=== PATIENT | male | born 1935 | race Caucasian/White ===

== ENCOUNTER 2018-01-31 10:30 | Inpatient (IN) | payer MEDICARE ==
[~2018-01-31] VITALS: Ht 188 cm; Wt 79.0 kg
[2018-01-31] VITALS (24 sets, daily range): BP systolic 122–221; BP diastolic 51–113; PULSE 55–114; RESP 16–30; TEMP 98.2–98.4; O2SAT 96–100
--- NOTE | 2018-01-31 10:43 | PD ---
HPI Chief Complaint: Altered Mental Status Time Seen by Provider: 10:33 Travel History International Travel<30 days: No Contact w/Intl Traveler<30days: No History of Present Illness HPI Patient is an approximately 82 year old male presents from home as trauma alert. He was found down in the bathroom this morning. Unknown last seen normal time. Patient is GCS of 8 on arrival (V-2, M-5, E-1). Patient unable to provide history. Trauma alert was called in the field suspecting a ground level fall. Patient's arrives sometime after the patient states that the patient apparently called out from the bathroom this morning saying he was okay earlier in the morning. She states that he usually gets out of bed about 4:30 in the morning and she does not usually get up to 8:00 so she did not suspect anything was wrong. Finally when she found him on the bathroom he was curled up in his head was resting against a cabinet. She is unsure if he fell or lowered himself to the ground or had a syncopal episode. He is not on any blood thinners, does have a history of a AAA repair once years ago and then a revision in March of last year by Dr. Lloyd. [facility] Past Medical History Narrative Medical Other than in [facility] unable to obtain Medical History: Unable to Obtain Past Surgical History Narrative Surgical Other than in [facility] unable to obtain Surgical History: Unable to Obtain Social History Narrative Social History Other than in [facility] unable to obtain Alcohol Use: No Tobacco Use: No Substance Use: No Allergies-Medications (Allergen,Severity, Reaction): Coded Allergies: Penicillins (Verified Allergy, Severe, 01/31/18) Reported Meds & Prescriptions Reported Meds & Active Scripts Active Reported Levothyroxine (Levothyroxine Sodium) 125 Mcg Tab 125 Mcg PO DAILY Lisinopril 2.5 Mg Tab 2.5 Mg PO DAILY Rosuvastatin (Rosuvastatin Calcium) 40 Mg Tab 40 Mg PO DAILY Metformin (Metformin HCl) 500 Mg Tab 500 Mg PO TID Review of Systems ROS Limitations: Altered Mental Status Physical Exam Narrative GENERAL: Well-developed well-nourished no obvious distress SKIN: Focused skin assessment warm/dry. HEAD: Atraumatic. Normocephalic. No ham signs no raccoons eyes EYES: Pupils equal and round. No scleral icterus. No injection or drainage. There is disconjugate gaze. ENT: No nasal bleeding or discharge. Mucous membranes pink and moist. TMs clear bilaterally NECK: Trachea midline. No JVD. CARDIOVASCULAR: Regular rate and rhythm. No murmur appreciated. RESPIRATORY: No accessory muscle use. Clear to auscultation. Breath sounds equal bilaterally. GASTROINTESTINAL: Abdomen soft, non-tender, nondistended. Hepatic and splenic margins not palpable. MUSCULOSKELETAL: No obvious deformities. No clubbing. No cyanosis. No edema. NEUROLOGICAL: Awake, stuporous, GCS of 8 as above. Moves all 4 extremities, he is yawning, intermittent myoclonic jerks. He will localize with bilateral upper extremities per Data Data Last Documented VS Vital Signs Date Time Temp Pulse Resp B/P (MAP) Pulse Ox O2 Delivery O2 Flow Rate FiO2 01/31/18 11:30 80 16 208/94 (132) 100 Ventilator 100 01/31/18 11:11 3.00 Orders Orders I-Stat Profile (01/31/18 10:35) Complete Blood Count With Diff (01/31/18 10:35) Prothrombin Time / Inr (Pt) (01/31/18 10:35) Act Partial Throm Time (Ptt) (01/31/18 10:35) Type And Screen (01/31/18 10:35) Fibrinogen (01/31/18 10:35) Alcohol (Ethanol) (01/31/18 10:35) Urinalysis - C+S If Indicated (01/31/18 10:35) Drug Screen, Random Urine (01/31/18 10:35) Chest, Single Ap (01/31/18 10:35) Pelvis, Ap Only (Routine) (01/31/18 10:35) Ct Brain W/O Iv Contrast(Rout) (01/31/18 10:35) Ct Cerv Spine W/O Contrast (01/31/18 10:35) Iv Access Insert/Monitor (01/31/18 10:35) Ecg Monitoring (01/31/18 10:35) Oximetry (01/31/18 10:35) Oxygen Administration (01/31/18 10:35) Basic Metabolic Panel (Bmp) (01/31/18 10:35) Troponin I (01/31/18 10:35) Ckmb (Isoenzyme) Profile (01/31/18 10:35) Rocuronium Inj (Zemuron Inj) (01/31/18 10:51) Etomidate Inj (Amidate Inj) (01/31/18 10:52) Propofol 500 Mg/50 Ml Inj (Diprivan 500 (01/31/18 11:20) Protein Corrected Calcium(Pcc) (01/31/18 10:33) Cta Brain W Iv Contrast W 3d (01/31/18 ) Admit Order (Ed Use Only) (01/31/18 ) Propofol 1000 Mg/100 Ml Inj (Diprivan 10 (01/31/18 11:30) Restraints Non-Violent SHAYY.Q3H (01/31/18 11:25) Etomidate Inj (Amidate Inj) (01/31/18 11:30) Rocuronium Inj (Zemuron Inj) (01/31/18 11:30) Insert Ng Tube (01/31/18 11:25) Chest, Single Ap (01/31/18 ) Elevate Head Of Bed (01/31/18 11:25) Labs Laboratory Tests Test 01/31/18 10:33 01/31/18 11:07 White Blood Count 10.2 TH/MM3 Red Blood Count 4.55 MIL/MM3 Hemoglobin 14.0 GM/DL Bedside Hemoglobin 11.9 G/DL Hematocrit 41.6 % Bedside Hematocrit 35.0 % Mean Corpuscular Volume 91.5 FL Mean Corpuscular Hemoglobin 30.7 PG Mean Corpuscular Hemoglobin Concent 33.6 % Red Cell Distribution Width 15.6 % Platelet Count 147 TH/MM3 Mean Platelet Volume 8.6 FL Neutrophils (%) (Auto) 91.7 % Lymphocytes (%) (Auto) 4.9 % Monocytes (%) (Auto) 3.1 % Eosinophils (%) (Auto) 0.0 % Basophils (%) (Auto) 0.3 % Neutrophils # (Auto) 9.3 TH/MM3 Lymphocytes # (Auto) 0.5 TH/MM3 Monocytes # (Auto) 0.3 TH/MM3 Eosinophils # (Auto) 0.0 TH/MM3 Basophils # (Auto) 0.0 TH/MM3 CBC Comment DIFF FINAL Differential Comment Prothrombin Time 10.7 SEC Prothromb Time International Ratio 1.1 RATIO Activated Partial Thromboplast Time 22.4 SEC Fibrinogen 306 mg/dL Bedside Sodium 142 MMOL/L Blood Urea Nitrogen 28 MG/DL Creatinine 0.94 MG/DL Random Glucose 147 MG/DL Total Protein 6.1 GM/DL Calcium Level 7.3 MG/DL Sodium Level 144 MEQ/L Potassium Level 3.5 MEQ/L Chloride Level 113 MEQ/L Carbon Dioxide Level 23.8 MEQ/L Bedside Potassium 3.5 MMOL/L Bedside Chloride 108 MMOL/L Anion Gap 7 MEQ/L Bedside Blood Urea Nitrogen 26 MG/DL Bedside Creatinine 0.8 MG/DL Estimat Glomerular Filtration Rate 69 ML/MIN Bedside Glucose 149 MG/DL Protein Corrected Calcium 7.8 MG/DL Total Creatine Kinase 68 U/L Troponin I 0.03 NG/ML Ethyl Alcohol Level LESS THAN 3 MG/DL Urine Color LIGHT-YELLOW Urine Turbidity CLEAR Urine pH 6.0 Urine Specific [place] 1.017 Urine Protein 30 mg/dL Urine Glucose (UA) NEG mg/dL Urine Ketones NEG mg/dL Urine Occult Blood TRACE Urine Nitrite NEG Urine Bilirubin NEG Urine Urobilinogen LESS THAN 2.0 MG/DL Urine Leukocyte Esterase NEG Urine RBC 3 /hpf Urine WBC 1 /hpf Urine Bacteria RARE /hpf Urine Mucus FEW /lpf Microscopic Urinalysis Comment CATH-CULTURE IND Urine Opiates Screen NEG Urine Barbiturates Screen NEG Urine Amphetamines Screen NEG Urine Benzodiazepines Screen NEG Urine Cocaine Screen NEG Urine Cannabinoids Screen NEG MDM Medical Screen Exam Complete: Yes Emergency Medical Condition: Yes EKG Prior to Arrival: Yes Differential Diagnosis Intracranial hemorrhage, multiple trauma unlikely, ruptured AAA considered but unlikely, cerebral aneurysm, hemorrhagic stroke, ischemic stroke, electrolyte normality, DKA. Narrative Course Patient room to the emergency department, I have a previous encounter number for him which is [id number]. This encounter for him being here in March having revision of his AAA. Patient did have prolonged transportation from our about 30 minutes prior to arrival, he is saturating well on nasal cannula. He is taken to CAT scan which did show significant hemorrhage in bilateral hemispheres which what appears to be extension in the brainstem. Last 24 hours Impressions Pelvis X-Ray 01/31/18 1035 Signed Impressions: Service Date/Time: Wednesday, January 31, 2018 10:33 - CONCLUSION: Suboptimal exam demonstrating no evidence of acute fracture or malalignment. Portions of the left hip were cut off the exam. Julio Ponce MD Head CT 01/31/18 1035 Signed Impressions: Service Date/Time: Wednesday, January 31, 2018 10:40 - CONCLUSION: 1. Large amount of bilateral subarachnoid hemorrhage with confluent high density hemorrhage along the base the brain and suprasellar regions of concern for aneurysm rupture. 2. Intraventricular hemorrhage with dilatation of the lateral ventricles and third ventricle. 3. Questionable intraparenchymal hemorrhage in the temporal lobes which may be secondary to large amount of subarachnoid hemorrhage. Julio Ponce MD Chest X-Ray 01/31/185 Signed Impressions: Service Date/Time: Wednesday, January 31, 2018 10:33 - CONCLUSION: 1. Suboptimal exam demonstrating no acute cardiac pulmonary disease. Portions of the left lateral chest wall and costophrenic angle cut off the exam. Julio Ponce MD Cervical Spine CT 01/31/18 1035 Signed Impressions: Service Date/Time: Wednesday, January 31, 2018 10:40 - CONCLUSION: Negative trauma CT. Julio Ponce MD Patient was ultimately seen by Dr. Flores and we both examined the patient and do not believe his hemorrhage to be from trauma, Dr. Phoenix was summoned at 1102 is at the bedside 1108 for neuro exam prior to intubation, afterwards he agrees the patient to be intubated for airway protection, was intubated easily with a glide scope. Became hypertensive after intubation with rock and etomidate, a dose of labetalol was ordered by Dr. Phoenix, Cardene drip was ordered by me. His head of bed was kept elevated to 30, he did receive a liter of normal saline. Multiple considerations were given to a CT of his aorta but after careful consideration I do not think this is contributing to his current medical situation, after discussion with the radiologist it would be safer for him at this point I believe to do a CTA of his head only by Dr. Phoenix recommendation. Ultimately discussed with Dr. Jose for admission to the intensive surgical unit for what appears to be isolated intracranial hemorrhage. I suspect nontraumatic however traumatic has not been completely excluded. I did discuss with the patient's prior to intubation, per the patient's living will which is not readily accessible to me at this time the patient would want to proceed with aggressive measurement if there is a chance of meaningful recovery. I discussed with her that this is a life-threatening injury but cannot say that it is 100% at this point. She elects to proceed with intubation. He will be a full code at this time. Critical Care Narrative Aggregate critical care time was 65 minutes. Time to perform other separately billable procedures was not included in the critical care time. My time did not include minutes spent treating any other patients simultaneously or on activities that did not directly contribute to the patient's treatment. The services I provided to this patient were to treat and/or prevent clinically significant deterioration that could result in: , disability, organ failure I provided critical care services requiring my management, as noted below: Chart data review, documentation time, medication orders and management, vital sign assessments/reviewing monitor data, ordering and reviewing lab tests, ordering and interpreting/reviewing x-rays and diagnostic studies, care of the patient and discussion of the patient with the admitting physicians. Procedures Procedure Narrative After the risks and benefits were discussed with the the following procedure was performed: INTUBATION: The patient was put in optimal position for the procedure. Rapid sequence intubation was initiated by me using 20 milligrams of etomidate IV and 50 milligrams of rocuronium IV. The patient was intubated with a 8-0 cuffed endotracheal tube. Tube placement was confirmed by visualization of the tube and balloon passing through the cords, capnometry and subsequent chest x-ray. Breath sounds were equal and well aerated bilaterally postintubation. No breath sounds over stomach. Patient tolerated procedure well. Trauma Alert - Level One Trauma Alert Level One: Full trauma team activate, Patient evaluated Diagnosis Diagnosis: Primary Impression: Subarachnoid hemorrhage Additional Impressions: Encephalopathy acute Hypertensive emergency without congestive heart failure Admitting Physician Requests: Admit Condition: Critical Brandon Elder MD Jan 31, 2018 10:43
--- NOTE | 2018-01-31 10:47 | RADRPT ---
EXAM DATE/TIME: 01/31/2018 10:33 [facility] COMPARISON: No previous studies available for comparison. INDICATIONS : Trauma alert. Found unconscious On floor. MEDICAL HISTORY : None. SURGICAL HISTORY : None. ENCOUNTER: Initial ACUITY: 1 day PAIN SCORE: Non-responsive. LOCATION: Bilateral chest FINDINGS: A single AP supine view of the chest was obtained. There is overlying artifact from a backboard. Port ions of the left lateral chest wall and costophrenic angle cut off the exam. There are no confluent i nfiltrates or effusions. The heart size appears mildly prominent with no perihilar edema. Mild athero sclerotic changes are present in the aorta. Bony thorax is intact with scoliosis and degenerative tatum nge. CONCLUSION: 1. Suboptimal exam demonstrating no acute cardiac pulmonary disease. Portions of the left lateral ch est wall and costophrenic angle cut off the exam. Julio Ponce MD on January 31, 2018 at 10:43 Board Certified Radiologist. This report was verified electronically.
--- NOTE | 2018-01-31 10:48 | RADRPT ---
EXAM DATE/TIME: 01/31/2018 10:33 [facility] COMPARISON: No previous studies available for comparison. INDICATIONS : Trauma alert. Found unconcious on floor. MEDICAL HISTORY : None. SURGICAL HISTORY : None. ENCOUNTER: Initial ACUITY: 1 day PAIN SCORE: Non-responsive. LOCATION: Bilateral pelvis FINDINGS: A single AP view of the pelvis was obtained. There is overlying artifact from a backboard. Portions o f the left hip were cut of the exam and are not evaluated. There is mild osteopenia with no evidence of fracture or malalignment. There are mild degenerative changes in the hips. The sacrum appears inta ct. Portions of an aortic stent graft is noted. CONCLUSION: Suboptimal exam demonstrating no evidence of acute fracture or malalignment. Portions of the left hip were cut off the exam. Julio Ponce MD on January 31, 2018 at 10:44 Board Certified Radiologist. This report was verified electronically.
[2018-01-31] MEDS ORDERED: ROCURONIUM INJ 50 MG/5 ML VIAL ONE (10:51)
[2018-01-31] MEDS ORDERED: ETOMIDATE 40 MG/20 ML VIAL ONE (10:52)
[2018-01-31 10:55] LABS: AUTOMATED NEUTROPHIL # 9.3 TH/MM3 (1.8-7.7); BASOPHIL % 0.3 % (0.0-2.0); HEMATOCRIT 41.6 % (39.0-51.0); LYMPH % 4.9 % (9.0-44.0); LYMPHOCYTE # 0.5 TH/MM3 (1.0-4.8); MEAN CELL VOLUME 91.5 FL (80.0-100.0); MEAN CORPUSCULAR HEMOGLOBIN 30.7 PG (27.0-34.0); MEAN CORPUSCULAR HGB CONC 33.6 % (32.0-36.0); MEAN PLATELET VOLUME 8.6 FL (7.0-11.0); MONO % 3.1 % (0.0-8.0); MONOCYTE # 0.3 TH/MM3 (0-0.9); NEUT % 91.7 % (16.0-70.0); PLATELET COUNT 147 TH/MM3 (150-450); RED BLOOD COUNT 4.55 MIL/MM3 (4.50-5.90); RED CELL DISTRIBUTION WIDTH 15.6 % (11.6-17.2); WHITE BLOOD COUNT 10.2 TH/MM3 (4.0-11.0)
--- NOTE | 2018-01-31 11:01 | RADRPT ---
EXAM DATE/TIME: 01/31/2018 10:40 [facility] COMPARISON: CT CERVICAL SPINE W/O CONTRAST, January 31, 2018, 10:40. INDICATIONS : Trauma alert, possible fall today. RADIATION DOSE: 64.63 CTDIvol (mGy) MEDICAL HISTORY : Non-responsive. SURGICAL HISTORY : Non-responsive. ENCOUNTER: Initial ACUITY: 1 day PAIN SCALE: Non-responsive LOCATION: Bilateral head TECHNIQUE: Multiple contiguous axial images were obtained of the head. Using automated exposure control and adj ustment of the mA and/or kV according to patient size, radiation dose was kept as low as reasonably a chievable to obtain optimal diagnostic quality images. DICOM format image data is available electro nically for review and comparison. FINDINGS: There is a large amount of subarachnoid hemorrhage greatest involving the temporal lobes and jan ng the intrahemispheric fissure anteriorly. There is high density confluent hemorrhage collections al modesto the base of the brain and suprasellar regions measuring up to 2 cm. There are additional smaller collections. Intraventricular hemorrhage is present in the posterior horns of the lateral ventricles there the lateral ventricles and third ventricle are dilated. The fourth ventricle appears within nor mal limits. There is extensive streak artifact limiting visualization through the posterior fossa. Th ere is questionable intraparenchymal hemorrhage in both temporal lobes which may be secondary to exte nsive subarachnoid hemorrhage. Bone windows demonstrate no evidence of fracture. CONCLUSION: 1. Large amount of bilateral subarachnoid hemorrhage with confluent high density hemorrhage along the base the brain and suprasellar regions of concern for aneurysm rupture. 2. Intraventricular hemorrhage with dilatation of the lateral ventricles and third ventricle. 3. Questionable intraparenchymal hemorrhage in the temporal lobes which may be secondary to large clemente unt of subarachnoid hemorrhage. Julio Ponce MD on January 31, 2018 at 10:52 Board Certified Radiologist. This report was verified electronically.
[2018-01-31 11:02] LABS: INTERNATIONAL NORMALIZED RATIO 1.1 RATIO; PROTHROMBIN TIME - PATIENT 10.7 SEC (9.8-11.6)
--- NOTE | 2018-01-31 11:02 | RADRPT ---
EXAM DATE/TIME: 01/31/2018 10:40 [facility] COMPARISON: No previous studies available for comparison. INDICATIONS : Trauma alert, possible fall today. RADIATION DOSE: 23.94 CTDIvol (mGy) MEDICAL HISTORY : Non-responsive. SURGICAL HISTORY : Non-responsive. ENCOUNTER: Initial ACUITY: 1 day PAIN SCALE: Non-responsive LOCATION: Bilateral neck TECHNIQUE: Volumetric scanning of the cervical spine was performed. Multiplanar reconstructions i n the sagittal, coronal and oblique axial planes were performed. Using automated exposure control a nd adjustment of the mA and/or kV according to patient size, radiation dose was kept as low as reason ably achievable to obtain optimal diagnostic quality images. DICOM format image data is available e lectronically for review and comparison. FINDINGS: The sagittal reconstructions demonstrate normal alignment and normal prevertebral soft tissues. The d ens is intact and there is a normal atlantoaxial relationship. Mild degenerative changes present. The axial images demonstrate that the vertebral bodies and posterior elements are intact. The soft ti ssues are within normal limits. There is no evidence of acute fracture or malalignment. Degenerative joint changes are present. The known intraparenchymal hemorrhage is again visualized. CONCLUSION: Negative trauma CT. uJlio Ponce MD on January 31, 2018 at 10:58 Board Certified Radiologist. This report was verified electronically.
[2018-01-31] MEDS ORDERED: LISI2.5T3 PO (11:09)
[2018-01-31] MEDS ORDERED: METF500T PO (11:09)
[2018-01-31] MEDS ORDERED: ROSU1TAB10 PO (11:09)
[2018-01-31] MEDS ORDERED: LEVO125T4 PO (11:09)
[2018-01-31 11:16] LABS: BICARBONATE 23.8 MEQ/L (21.0-32.0); BLOOD UREA NITROGEN 28 MG/DL (7-18); CALCIUM 7.3 MG/DL (8.5-10.1); CHLORIDE 113 MEQ/L (98-107); CREATININE 0.94 MG/DL (0.60-1.30); GLOMERULAR FILTRATION RATE 69 ML/MIN (>89); GLUCOSE,RANDOM 147 MG/DL (74-106); SODIUM (NA) 144 MEQ/L (136-145); TROPONIN I 0.03 NG/ML (0.02-0.05)
[2018-01-31] MEDS ORDERED: PROPOFOL 500 MG/50 ML INJ 50 ML ONE (11:20)
[2018-01-31] MEDS ORDERED: ETOMIDATE 20 MG/10 ML VIAL IV PUSH ONE (11:30)
[2018-01-31] MEDS ORDERED: ROCURONIUM INJ 50 MG/5 ML VIAL IV ONE (11:30)
[2018-01-31 11:40] LABS: CALCIUM-PROTEIN CORRECTED 7.8 MG/DL (8.5-10.1); TOTAL PROTEIN 6.1 GM/DL (6.4-8.2)
[2018-01-31] MEDS: PROPOFOL 1000 MG/100 ML INJ 100 ML IV PRN ×4 (11:47→22:38)
--- NOTE | 2018-01-31 11:48 | PD.CONS ---
History of Present Illness Service Neurosurgery Consult Requested By Emergency room-Dr. Elder Reason for Consult Intracranial and subarachnoid hemorrhage Primary Care Physician Unknown Diagnoses: History of Present Illness 82-year-old male who according to his has complained of dizziness without headache nausea or vomiting over the past 3 days. Earlier in the week he was seen by his primary care physician for hypertension. He was able to play golf yesterday. She last saw him last evening. When she awoke this morning he was in the bathroom. At approximately 10:30 AM she went to check on him and found him on the floor, essentially unresponsive with no eye-opening, nonverbal, not following commands but moving his extremity spontaneous. He was brought to the emergency room by EMS as a trauma alert. Subsequent CT scan of the head has revealed diffuse parenchymal and subarachnoid hemorrhage. Patient is intubated in the emergency room for airway control. Review of Systems Unable to obtain review of systems from the patient due to altered mental status. The patient's states that he has had no fevers, chills, sweats. No headache, nausea, vomiting, diarrhea, constipation or abdominal discomfort. Positive dizziness 3 days. No definite vertigo. No recent chest pain, palpitations, shortness of breath. Past Family Social History Allergies: Coded Allergies: Penicillins (Verified Allergy, Severe, 01/31/18) Past Medical History Hypertension Hyperlipidemia Diabetes History abdominal aortic aneurysm His states that he has a cardiac aneurysm-untreated. History of coronary artery disease-status post stent History probable benign prostate hypertrophy Past Surgical History Cardiac stent approximately 30 years ago. Abdominal aortic aneurysm graft approximately 8 years ago with endovascular repair of failed graft March 2017. Prostate surgery Reported Medications Reported Meds & Active Scripts Active Reported Levothyroxine (Levothyroxine Sodium) 125 Mcg Tab 125 Mcg PO DAILY Lisinopril 2.5 Mg Tab 2.5 Mg PO DAILY Rosuvastatin (Rosuvastatin Calcium) 40 Mg Tab 40 Mg PO DAILY Metformin (Metformin HCl) 500 Mg Tab 500 Mg PO TID Family History History of coronary artery disease with stent placement in his 2 brothers Social History No history of smoking or significant alcohol use. Physical Exam Vital Signs Vital Signs Date Time Temp Pulse Resp B/P (MAP) Pulse Ox O2 Delivery O2 Flow Rate FiO2 01/31/18 11:24 114 18 219/113 (148) 99 01/31/18 11:11 70 21 165/78 (107) 100 Nasal Cannula 3.00 01/31/18 11:06 100 Nasal Cannula 3.00 01/31/18 11:06 100 Nasal Cannula 3.00 01/31/18 11:04 70 20 160/74 (102) Nasal Cannula 3.00 Physical Exam GENERAL: This is a well-nourished, well-developed patient, mostly unresponsive. SKIN: No rashes, ecchymoses or lesions. Cool and dry. HEAD: Atraumatic. Normocephalic. No temporal or scalp tenderness. EYES: Pupils 2 mm right, 3 mm left, both moderately reactive. Sclera clear and nonicteric ENT: Nose without bleeding, purulent drainage or septal hematoma. Oropharynx clear. No CSF otorrhea or rhinorrhea. NECK: Trachea midline. No JVD or lymphadenopathy. No nuchal rigidity CARDIOVASCULAR: Regular rate and rhythm without murmurs, gallops, or rubs. RESPIRATORY: Clear to auscultation. Breath sounds shallow, equal bilaterally. No wheezes, rales, or rhonchi. GASTROINTESTINAL: Abdomen soft, nondistended. No hepato-splenomegaly, or palpable masses. No guarding. MUSCULOSKELETAL: Extremities without clubbing, cyanosis, or edema. No edema or cyanosis. Posterior tibial pulse 2+ bilateral. NEUROLOGICAL: Patient is obtunded. No eye-opening to sternal rub, deep pain or voice. He does not follow commands. Nonverbal. He has semi-purposeful spontaneous movements of the upper extremities. Occasional spontaneous lower extremity movements with moderate strength. Pupils 2 mm right, 3 mm left both moderately reactive. Left gaze preference. Mild, mildly disconjugate oculocephalics. Moderate bilateral corneal response Moderate intermittent withdrawal deep pain upper and lower extremities. Mild bilateral grasp, not to command. Yee's response absent bilateral No ankle clonus Plantar responses slightly extensor left, flexor right. Laboratory Laboratory Tests Test 01/31/18 10:33 White Blood Count 10.2 Red Blood Count 4.55 Hemoglobin 14.0 Bedside Hemoglobin 11.9 Hematocrit 41.6 Bedside Hematocrit 35.0 Mean Corpuscular Volume 91.5 Mean Corpuscular Hemoglobin 30.7 Mean Corpuscular Hemoglobin Concent 33.6 Red Cell Distribution Width 15.6 Platelet Count 147 Mean Platelet Volume 8.6 Neutrophils (%) (Auto) 91.7 Lymphocytes (%) (Auto) 4.9 Monocytes (%) (Auto) 3.1 Eosinophils (%) (Auto) 0.0 Basophils (%) (Auto) 0.3 Neutrophils # (Auto) 9.3 Lymphocytes # (Auto) 0.5 Monocytes # (Auto) 0.3 Eosinophils # (Auto) 0.0 Basophils # (Auto) 0.0 CBC Comment DIFF FINAL Differential Comment Prothrombin Time 10.7 Prothromb Time International Ratio 1.1 Activated Partial Thromboplast Time 22.4 Fibrinogen 306 Bedside Sodium 142 Blood Urea Nitrogen 28 Creatinine 0.94 Random Glucose 147 Calcium Level 7.3 Sodium Level 144 Potassium Level 3.5 Chloride Level 113 Carbon Dioxide Level 23.8 Bedside Potassium 3.5 Bedside Chloride 108 Anion Gap 7 Bedside Blood Urea Nitrogen 26 Bedside Creatinine 0.8 Estimat Glomerular Filtration Rate 69 Bedside Glucose 149 Total Creatine Kinase 68 Troponin I 0.03 Ethyl Alcohol Level LESS THAN 3 Result Diagram: 01/31/18 1033 01/31/18 1033 Imaging Scan head images reviewed by the undersigned. There is significant bilateral sylvian subarachnoid hemorrhage as well as significant hematoma in the chiasmatic and suprasellar cistern. Positive intraventricular hemorrhage. Moderate ventriculomegaly. 3 lobular increased density regions in the region of the anterior communicating artery as well as the third ventricle. Findings are suggestive of an aneurysm versus arteriovenous malformation 01/31/2018 CT scan head images reveal no evidence of acute fracture or subluxation or significant canal compromise. Pelvis X-Ray 01/31/18 1035 Signed Impressions: Service Date/Time: Wednesday, January 31, 2018 10:33 - CONCLUSION: Suboptimal exam demonstrating no evidence of acute fracture or malalignment. Portions of the left hip were cut off the exam. Julio Ponce MD Head CT 01/31/18 1035 Signed Impressions: Service Date/Time: Wednesday, January 31, 2018 10:40 - CONCLUSION: 1. Large amount of bilateral subarachnoid hemorrhage with confluent high density hemorrhage along the base the brain and suprasellar regions of concern for aneurysm rupture. 2. Intraventricular hemorrhage with dilatation of the lateral ventricles and third ventricle. 3. Questionable intraparenchymal hemorrhage in the temporal lobes which may be secondary to large amount of subarachnoid hemorrhage. Julio Ponce MD Chest X-Ray 01/31/18 1035 Signed Impressions: Service Date/Time: Wednesday, January 31, 2018 10:33 - CONCLUSION: 1. Suboptimal exam demonstrating no acute cardiac pulmonary disease. Portions of the left lateral chest wall and costophrenic angle cut off the exam. Julio Ponce MD Cervical Spine CT 01/31/18 1035 Signed Impressions: Service Date/Time: Wednesday, January 31, 2018 10:40 - CONCLUSION: Negative trauma CT. Julio Ponce MD Assessment and Plan Assessment and Plan Impression: 1. Probable aneurysmal subarachnoid hemorrhage. CT scan suggestive of possible multiple aneurysms, possible AVM. Plan: Findings were discussed with the patient's in the emergency room. Discussed with emergency room physician CT angiogram pending. Patient intubated in the emergency room On propofol for sedation. Nimodipine for vasospasm prophylaxis. Nicardipine intravenous started for hypertension control as well as as needed medications. Ulcer prophylaxis Ventriculostomy placement discussed with the patient's . Discussed with interventional radiology. Transferred to [facility] for further interventional endovascular procedure recommended. Discussed with patient's who is in agreement. Lopez Phoenix MD Jan 31, 2018 11:48
[2018-01-31] MEDS: LABETALOL HCL 100 MG/20 ML VIAL IV PUSH PRN ×2 (11:57→12:35)
--- NOTE | 2018-01-31 12:03 | RADRPT ---
EXAM DATE/TIME: 01/31/2018 11:46 [facility] COMPARISON: CHEST SINGLE AP, January 31, 2018, 10:33. INDICATIONS : Intracranial hemorrhage. Status post intubation. MEDICAL HISTORY : Unresponsive. SURGICAL HISTORY : Unresponsive. ENCOUNTER: Initial ACUITY: 1 day PAIN SCORE: Non-responsive. LOCATION: Bilateral chest FINDINGS: 2 AP semierect views of the chest were obtained and demonstrate interval intubation with endotracheal tube tip approximately 4.6 cm above the violeta. A nasogastric tube has been placed and is seen cours ing through the esophagus and into the proximal stomach. There are no confluent infiltrates or effusi ons. The heart size is at the upper limits of normal with no perihilar edema. The bony thorax is inta ct. CONCLUSION: 1. Interval intubation and placement of nasogastric tube. 2. No acute cardiopulmonary disease. Julio Ponce MD on January 31, 2018 at 11:57 Board Certified Radiologist. This report was verified electronically.
[2018-01-31] MEDS: niCARdipine INJ 25 MG in SODIUM CHLOR 0.9% 250 ML INJ 240 ML IV PRN ×2 (12:08→16:28)
[2018-01-31] MEDS ORDERED: hydrALAZINE HCL 20 MG/ML VIAL IV PUSH PRN (12:15)
[2018-01-31] MEDS ORDERED: IOHEXOL 350 MG/ML 10 ML VIAL (for RAD DIAG) IVCONTRAST ONE ×2 (12:25→12:38)
[2018-01-31] MEDS ORDERED: CHLORHEXIDINE GLUCONATE 2 % 1 PACK (2 CLOTHS) TOP PRN (13:15)
[2018-01-31] MEDS ORDERED: ONDANSETRON HCL 4 MG/2 ML VIAL IV PUSH PRN (13:15)
[2018-01-31] MEDS ORDERED: ACETAMINOPHEN 325 MG TAB PO PRN (13:15)
[2018-01-31] MEDS ORDERED: RESP: ALBUTEROL 2.5 MG/IPRATROPIUM 0.5 MG NEB (PRN) INH (13:15)
[2018-01-31] MEDS ORDERED: BISACODYL 10 MG SUPP RECTAL PRN (13:15)
[2018-01-31] MEDS ORDERED: MISCELLANEOUS NURSING INFORMATION XX SCH (13:15)
[2018-01-31] MEDS ORDERED: SENNOSIDES 8.6 MG TAB PO PRN (13:15)
[2018-01-31] MEDS ORDERED: MAGNESIUM HYDROXIDE SUSP 30 ML CUP PO PRN (13:15)
[2018-01-31] MEDS ORDERED: LACTULOSE SYRUP 20 GM/30 ML CUP PO PRN (13:15)
[2018-01-31 13:22] LABS: BACTERIA, URINE RARE /hpf; BILIRUBIN, URINE NEG (NEG); BLOOD, URINE TRACE (NEG); GLUCOSE,URINE NEG (NEG); KETONE, URINE NEG (NEG); MUCUS URINE FEW /lpf (OCC); NITRITE,URINE NEG (NEG); URINE COLOR LIGHT-YELLOW (YELLW/STRAW); URINE LEUKOCYTE ESTERASE NEG (NEG)
[2018-01-31] MEDS: SODIUM CHLOR 0.9% 1000 ML INJ 1,000 ML IV SCH ×2 (13:24→22:37)
--- NOTE | 2018-01-31 13:27 | HHI.HP ---
[facility] Service Critical Care Medicine Primary Care Physician Tory Chow MD Admission Diagnosis Intracranial Hemorrhage Diagnosis: (1) Subarachnoid hemorrhage Diagnosis: Principal (2) Encephalopathy acute Diagnosis: Principal (3) Acute respiratory failure Diagnosis: Principal (4) Hypertensive urgency Diagnosis: Principal Chief Complaint: Found down and unresponsive. Travel History International Travel<30 Days: No Contact w/Intl Traveler <30 Da: No Traveled to Known Affected Are: No History of Present Illness 82 y/o man found down in his bathroom by his . No evidence of traumatic injury. Brought to ED by EMS with hypertension and acute encephalopathy. Required intubation for airway protection due to decrease level of consciousness. CT Head revealed diffuse subarachnoid hemorrhage. Evaluated by Dr. Phoenix from Neurosurgery, felt to be aneurysmal origin. Plan to place external ventricular drain and undergo imaging for probable aneurysm. Past Family Social History Allergies: Coded Allergies: Penicillins (Verified Allergy, Severe, 01/31/18) Past Medical History Allergies-Medications (Allergen,Severity, Reaction): Coded Allergies: Penicillins (Verified Allergy, Severe, 01/31/18) Reported Meds & Prescriptions Reported Meds & Active Scripts Active Reported Levothyroxine (Levothyroxine Sodium) 125 Mcg Tab 125 Mcg PO DAILY Lisinopril 2.5 Mg Tab 2.5 Mg PO DAILY Rosuvastatin (Rosuvastatin Calcium) 40 Mg Tab 40 Mg PO DAILY Metformin (Metformin HCl) 500 Mg Tab 500 Mg PO TID Physical Exam Vital Signs Vital Signs Date Time Temp Pulse Resp B/P (MAP) Pulse Ox O2 Delivery O2 Flow Rate FiO2 01/31/18 12:30 70 16 171/81 (111) 100 Ventilator 100 01/31/18 12:20 72 16 183/86 (118) 100 Ventilator 100 01/31/18 12:15 68 16 159/75 (103) 100 Ventilator 100 01/31/18 12:08 69 183/81 01/31/18 12:01 78 28 202/94 (130) 100 Ventilator 100 01/31/18 11:45 82 30 221/105 (143) 100 Ventilator 100 01/31/18 11:30 80 16 208/94 (132) 100 Ventilator 100 01/31/18 11:29 81 16 188/86 (120) 100 Ventilator 100 01/31/18 11:26 100 01/31/18 11:24 114 18 219/113 (148) 99 01/31/18 11:24 100 100 01/31/18 11:11 70 21 165/78 (107) 100 Nasal Cannula 3.00 01/31/18 11:06 100 Nasal Cannula 3.00 01/31/18 11:06 100 Nasal Cannula 3.00 01/31/18 11:04 70 20 160/74 (102) Nasal Cannula 3.00 01/31/18 10:32 98 3.00 Physical Exam General: Sedated, intubated, ventilated. Head: Atraumatic, normal. Neck: Supple, Orally intubated. Lungs: Clear bilaterally, normal excursions, good bilateral breath sounds. Heart: Regular rate and rhythm, normal S1-S2, no JVD. Abdomen: Soft, nontender, nondistended, bowel sounds are present. No guarding. Extremities: Warm, well-perfused, symmetrical muscular development. Neuro: Moves 4 extremities to stimulation. Squeezes left and right hand. Patellar deep tendon reflexes 3+ left 2+ right. No ankle clonus. Toes down bilaterally. Pupils 3 mm react to 2 mm briskly. Cough reflex intact. Moderately sedated with propofol. Laboratory Laboratory Tests Test 01/31/18 10:33 01/31/18 11:07 White Blood Count 10.2 Red Blood Count 4.55 Hemoglobin 14.0 Bedside Hemoglobin 11.9 Hematocrit 41.6 Bedside Hematocrit 35.0 Mean Corpuscular Volume 91.5 Mean Corpuscular Hemoglobin 30.7 Mean Corpuscular Hemoglobin Concent 33.6 Red Cell Distribution Width 15.6 Platelet Count 147 Mean Platelet Volume 8.6 Neutrophils (%) (Auto) 91.7 Lymphocytes (%) (Auto) 4.9 Monocytes (%) (Auto) 3.1 Eosinophils (%) (Auto) 0.0 Basophils (%) (Auto) 0.3 Neutrophils # (Auto) 9.3 Lymphocytes # (Auto) 0.5 Monocytes # (Auto) 0.3 Eosinophils # (Auto) 0.0 Basophils # (Auto) 0.0 CBC Comment DIFF FINAL Differential Comment Prothrombin Time 10.7 Prothromb Time International Ratio 1.1 Activated Partial Thromboplast Time 22.4 Fibrinogen 306 Bedside Sodium 142 Blood Urea Nitrogen 28 Creatinine 0.94 Random Glucose 147 Total Protein 6.1 Calcium Level 7.3 Sodium Level 144 Potassium Level 3.5 Chloride Level 113 Carbon Dioxide Level 23.8 Bedside Potassium 3.5 Bedside Chloride 108 Anion Gap 7 Bedside Blood Urea Nitrogen 26 Bedside Creatinine 0.8 Estimat Glomerular Filtration Rate 69 Bedside Glucose 149 Protein Corrected Calcium 7.8 Total Creatine Kinase 68 Troponin I 0.03 Ethyl Alcohol Level LESS THAN 3 Result Diagram: 01/31/18 1033 01/31/18 1033 Obed VTE Risk Assessment Gerber VTE Risk Assessment: Mod/High Risk (score >= 2) VTE Pharm Contraindication: Active bleeding Caprini Risk Assessment Model Point Value = 1 Point Value = 2 Point Value = 3 Point Value = 5 Age 41-60 Minor surgery BMI > 25 kg/m2 Swollen legs Varicose veins or History of unexplained or recurrent spontaneous Oral contraceptives or hormone replacement Sepsis (< 1 month) Serious lung disease, including pneumonia (< 1 month) Abnormal pulmonary function Acute myocardial infarction Congestive heart failure (< 1 month) History of inflammatory bowel disease Medical patient at bed rest Age 61-74 Arthroscopic surgery Major open surgery (> 45 min) Laparoscopic surgery (> 45 min) Malignancy Confined to bed (> 72 hours) Immobilizing plaster cast Central venous access Age >= 75 History of VTE Family history of VTE Factor V Leiden Prothrombin 18030G Lupus anticoagulant Anticardiolipin antibodies Elevated serum homocysteine Heparin-induced thrombocytopenia Other congenital or acquired thrombophilia Stroke (< 1 month) Elective arthroplasty Hip, pelvis, or leg fracture Acute spinal cord injury (< 1 month) Prophylaxis Regimen Total Risk Factor Score Risk Level Prophylaxis Regimen 0-1 Low Early ambulation 2 Moderate Order ONE of the following: *Sequential Compression Device (SCD) *Heparin 5000 units SQ BID 3-4 Higher Order ONE of the following medications: *Heparin 5000 units SQ TID *Enoxaparin/Lovenox 40 mg SQ daily (WT < 150 kg, CrCl > 30 mL/min) *Enoxaparin/Lovenox 30 mg SQ daily (WT < 150 kg, CrCl > 10-29 mL/min) *Enoxaparin/Lovenox 30 mg SQ BID (WT < 150 kg, CrCl > 30 mL/min) AND/OR *Sequential Compression Device (SCD) 5 or more Highest Order ONE of the following medications: *Heparin 5000 units SQ TID (Preferred with Epidurals) *Enoxaparin/Lovenox 40 mg SQ daily (WT < 150 kg, CrCl > 30 mL/min) *Enoxaparin/Lovenox 30 mg SQ daily (WT < 150 kg, CrCl > 10-29 mL/min) *Enoxaparin/Lovenox 30 mg SQ BID (WT < 150 kg, CrCl > 30 mL/min) AND *Sequential Compression Device (SCD) Assessment and Plan Problem List: (1) Subarachnoid hemorrhage ICD Code: I60.9 - Nontraumatic subarachnoid hemorrhage, unspecified Status: Acute (2) Encephalopathy acute ICD Code: G93.40 - Encephalopathy, unspecified Status: Acute (3) Acute respiratory failure ICD Code: J96.00 - Acute respiratory failure, unspecified whether with hypoxia or hypercapnia Status: Acute (4) Hypertensive urgency ICD Code: I16.0 - Hypertensive urgency Status: Acute Assessment and Plan Plan: Neuro: -Blood pressure control with Cardene infusion until aneurysm controlled or ruled out. -CT angiogram looking specifically for aneurysm. -External ventricular drain to be placed by neurosurgical service. -No chemical DVT prophylaxis due to active intracranial bleeding. -Maintain euvolemic. -Nimodipine initiation per neurosurgery. Respiratory: -Mechanical ventilation PRVC mode. -Monitor end tidal CO2 and maintain arterial PCO2 in the 35 torr range -Correlate end-tidal CO2 with arterial PCO2.. -Propofol sedation as needed. -Fentanyl analgesia as needed. Cardiovascular: -Maintain systolic blood pressure less than 140 initially. -Attenuate sustained tachycardia with oral beta-cecil per NG tube. -Hold aspirin for now. -Insertion arterial monitoring line. Gastrointestinal: -Nasogastric tube to low intermittent suction. -Pepcid for GI ulcer prophylaxis twice daily. Genitourinary: -Myles catheter to closed bag drainage for hourly urine output. Hematology: -Confirm adequate platelet concentration. -Serial hemoglobin determination. Infectious disease: -Urinalysis, culture if indicated. -Cultures for fever. Endocrinology: -Sliding scale insulin algorithm for euglycemia as needed -Serial glucose determination. Overall impression: This gentleman is critically ill with marked neurological impairment and requiring a chemical ventilation. His large subarachnoid hemorrhage is spontaneous and likely presents an intracerebral aneurysm rupture. Frequent adjustment of intravenous fluids, vasoactive infusions, and mechanical ventilation settings will be required while the neurosurgical team attempts to locate the cerebral aneurysm and place an external ventricular drain. The neurological status is unstable and likely to remain so for the next several days. Critical care 45 minutes aside from invasive procedures. Bebeto Goodwin MD Jan 31, 2018 13:27
--- NOTE | 2018-01-31 13:40 | RADRPT ---
EXAM DATE/TIME: 01/31/2018 12:25 [facility] COMPARISON: CT BRAIN W/O CONTRAST, January 31, 2018, 10:40. INDICATIONS : Abnormal CT brain. IV CONTRAST: 85 cc Omnipaque 350 (iohexol) IV ; Cumulative dose for multiple exams. RADIATION DOSE: 28.67 CTDIvol (mGy) ; Combined studies MEDICAL HISTORY : Non-responsive. SURGICAL HISTORY : Non-responsive. ENCOUNTER: Initial ACUITY: 1 day PAIN SCALE: Non-responsive LOCATION: Bilateral neck Elevated flow velocities and ICA/CCA ratios have been found to correlate with increased degrees of vessel stenosis, calculated as percentage of diameter relative to a normal segment of distal ICA/CCA. TECHNIQUE: Volumetric scanning was performed using a multirow detector CT scanner. The data was post processed with a variety of visualization algorithms including full-volume maximum intensity projection, multip lanar sliding thin-slab reformation, curved-planar reformation, and surface-rendering techniques. Us ing automated exposure control and adjustment of the mA and/or kV according to patient size, radiatio n dose was kept as low as reasonably achievable to obtain optimal diagnostic quality images. DICOM f ormat image data is available electronically for review and comparison. FINDINGS: AORTIC ARCH: There is a three-vessel origin of the great vessels from the aorta. No evidence of ostial narrowing. RIGHT CAROTID: The common carotid artery is intact. Calcification of the carotid bifurcation with no significant viraj nosis. Internal carotid is patent throughout. The external carotid artery is intact. LEFT CAROTID: The common carotid artery is intact. Calcification at the bifurcation with mild atherosclerotic irreg ularity of the proximal internal but no significant stenosis.. The external carotid artery is intact . VERTEBRALS: Patient is left vertebral dominant. CONCLUSION: 1. Calcification of both carotid bifurcations with no associated stenosis. 2. Patient is left vertebral dominant. The arch and cervical vessels are otherwise patent throughout with no significant stenosis Mark Jeffers MD on January 31, 2018 at 13:34 Board Certified Radiologist. This report was verified electronically.
[2018-01-31] MEDS ORDERED: PANTOPRAZOLE SODIUM 40 MG VIAL IV PUSH SCH (14:00)
[2018-01-31] MEDS ORDERED: MIDAZOLAM HCL 5 MG/ML VIAL (1 ML) ONE (14:54)
--- NOTE | 2018-01-31 15:11 | RADRPT ---
EXAM DATE/TIME: 01/31/2018 12:25 [facility] COMPARISON: No previous studies available for comparison. INDICATIONS : Abnormal CT brain. IV CONTRAST: 85 cc Omnipaque 350 (iohexol) IV ; Cumulative dose for multiple exams. RADIATION DOSE: 28.67 CTDIvol (mGy) ; Combined studies MEDICAL HISTORY : Non-responsive. SURGICAL HISTORY : Non-responsive. ENCOUNTER: Initial ACUITY: 1 day PAIN SCALE: Non-responsive LOCATION: Bilateral head TECHNIQUE: Volumetric scanning was performed using a multi-row detector CT scanner. The data was post processed with a variety of visualization algorithms including full volume maximum intensity projection, multi -planar sliding thin slab reformation, curved planar reformation, and surface rendering techniques. Using automated exposure control and adjustment of the mA and/or kV according to patient size, radiat ion dose was kept as low as reasonably achievable to obtain optimal diagnostic quality images. DICO M format image data is available electronically for review and comparison. FINDINGS: There is excellent visualization of the major intracranial arteries out to the second-order branch ve ssels. 3 mm aneurysm with a small teet extending right anterolateral. High grade focal stenosis in th e left P1 segment. 2 cranial vessels are otherwise CONCLUSION: 1. 3 mm a common aneurysm with an irregular teet extending right anterolateral. 2. High-grade focal stenosis in the left P1 segment. Findings could represent made of atherosclerotic disease although focal vasospasm cannot be excluded. Mark Jeffers MD on January 31, 2018 at 15:05 Board Certified Radiologist. This report was verified electronically.
[2018-01-31] MEDS ORDERED: ATORVASTATIN 80 MG TAB PO SCH (16:00)
[2018-01-31] MEDS: niMODipine 30 MG CAP NG SCH ×2 (16:23→20:09)
[2018-01-31] MEDS ORDERED: MIDAZOLAM HCL 5 MG/ML VIAL (1 ML) IV ONE (17:00)
--- NOTE | 2018-01-31 17:43 | PD.PROCEDR ---
Procedure Note Procedure Diagnosis: Subarachnoid hemorrhage with aneurysm Procedure: Insertion left radial artery monitoring line Operation: Timeout performed, patient identified. Fredrick test normal left hand. Left wrist supinated, prepped and draped. A 20-gauge needle used to cannulate left radial artery and wire easily advanced. Flexible cannula passed over wire to 3 cm. High pressure tubing connected and good waveform observed. Sterile dressing applied. Circulation to hand unchanged after procedure, fingers warm and well-perfused. Bebeto Goodwin MD Jan 31, 2018 17:43
[2018-01-31] MEDS ORDERED: CHLORHEXIDINE 0.12% (ORAL KIT) 15 ML CUP MT SCH (20:00)
--- NOTE | 2018-01-31 20:22 | PD.OP ---
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 The procedure, risks, and possible complications were fully explained prior to the procedure and consent obtained and witnessed. Appropriate timeout procedure was performed with all personnel present and in agreement The patient was placed in supine position with the head and neck in neutral position and the head of the bed elevated approximately 20 The right frontal region was shaved with clippers and sterilely prepped and draped. One percent Xylocaine without epinephrine was used for local infiltration over the small incision site which was made approximately 9-10 cm above the right supraorbital rim, approximately 3-1/2 to 4 cm lateral to the midline, in the mid pupillary line just anterior to the coronal suture. The hand drill was used to make a single twist drill opening in the cranium and the dura was perforated with the trocar. The Codman Bactiseal ventriculostomy catheter was advanced to a depth of 6-7 cm intracranial in a single pass with good return of spinal fluid. Opening pressure was 15 centimeter water The catheter was tunneled to the posterior frontal region with a trocar and secured to the skin with 3-0 nylon suture which was also used to close the small incision. A sterile bactericidal dressing was applied The catheter was connected to the drainage reservoir, and there was good drainage of fluid. The patient's neurologic exam remained stable following the procedure No specimen was sent There was no significant bleeding Lopez Phoenix MD Jan 31, 2018 20:22
[2018-01-31] MEDS ORDERED: levETIRAcetam INJ 500 MG in SODIUM CHLORIDE 0.9% INJ 100 ML IV SCH (21:00)
[2018-01-31] MEDS ORDERED: DOCUSATE SODIUM 50 MG/SENNA 8.6 MG TAB PO SCH (21:00)
[2018-01-31] MEDS ORDERED: FAMOTIDINE 20 MG/2 ML VIAL IV PUSH SCH (21:00)
[2018-02-01] MEDS ORDERED: CHLORHEXIDINE GLUCONATE 2 % 1 PACK (2 CLOTHS) TOP SCH (04:00)
[2018-02-01] MEDS ORDERED: LEVOTHYROXINE SODIUM 125 MCG TAB PO SCH (06:00)
--- NOTE | 2018-02-01 07:06 | HHI.DS ---
Discharge Summary Admission Date Jan 31, 2018 at 11:30 Discharge Date: Jan 31, 2018 Admitting Diagnosis Intracranial Hemorrhage (1) Subarachnoid hemorrhage ICD Code: I60.9 - Nontraumatic subarachnoid hemorrhage, unspecified Diagnosis: Principal Status: Acute (2) Acute respiratory failure ICD Code: J96.00 - Acute respiratory failure, unspecified whether with hypoxia or hypercapnia Diagnosis: Principal Status: Acute (3) Encephalopathy acute ICD Code: G93.40 - Encephalopathy, unspecified Diagnosis: Principal Status: Acute (4) Hypertensive urgency ICD Code: I16.0 - Hypertensive urgency Diagnosis: Principal Status: Acute Procedures Intubation and mechanical ventilation Brief History 82 y/o man found down in his bathroom by his . No evidence of traumatic injury. Brought to ED by EMS with hypertension and acute encephalopathy. Required intubation for airway protection due to decrease level of consciousness. CT Head revealed diffuse subarachnoid hemorrhage. Evaluated by Dr. Phoenix from Neurosurgery, felt to be aneurysmal origin. Plan to place external ventricular drain and undergo imaging for probable aneurysm. CBC/BMP: 01/31/18 1033 01/31/18 1033 Significant Findings Laboratory Tests Test 01/31/18 10:33 01/31/18 11:07 01/31/18 13:11 01/31/18 14:50 Bedside Hemoglobin 11.9 G/DL (13.0-17.0) Bedside Hematocrit 35.0 % (39.0-51.0) Platelet Count 147 TH/MM3 (150-450) Neutrophils (%) (Auto) 91.7 % (16.0-70.0) Lymphocytes (%) (Auto) 4.9 % (9.0-44.0) Neutrophils # (Auto) 9.3 TH/MM3 (1.8-7.7) Lymphocytes # (Auto) 0.5 TH/MM3 (1.0-4.8) Activated Partial Thromboplast Time 22.4 SEC (24.3-30.1) Blood Urea Nitrogen 28 MG/DL (7-18) Random Glucose 147 MG/DL (74-106) Total Protein 6.1 GM/DL (6.4-8.2) Calcium Level 7.3 MG/DL (8.5-10.1) Chloride Level 113 MEQ/L (98-107) Bedside Potassium 3.5 MMOL/L (3.6-5.0) Bedside Blood Urea Nitrogen 26 MG/DL (5-21) Estimat Glomerular Filtration Rate 69 ML/MIN (>89) Bedside Glucose 149 MG/DL (68-110) Protein Corrected Calcium 7.8 MG/DL (8.5-10.1) Urine Protein 30 mg/dL (NEG-TRACE) Urine Occult Blood TRACE (NEG) Urine Bacteria RARE /hpf (NONE) Urine Mucus FEW /lpf (OCC) Arterial Blood Partial Pressure O2 559 mmHg (61-120) Arterial Blood Oxygen Content 20.3 Vol % (12.0-20.0) Test 01/31/18 17:58 Arterial Blood Partial Pressure CO2 35 mmHg (38-42) Arterial Blood Partial Pressure O2 256 mmHg (61-120) Imaging CTA neck and head -> 3 cm anterior communicating artery aneurysm. CT Head -> diffuse subarachnoid hemorrhage. PE at Discharge Blood pressure control good with Cardene infusion. Gas exchange normal on mechanical ventilation. Sinus cardiac rhythm, warm and well-perfused. Physical Exam General: Sedated, intubated, ventilated. Head: Atraumatic, normal. Neck: Supple, Orally intubated. Lungs: Clear bilaterally, normal excursions, good bilateral breath sounds. Heart: Regular rate and rhythm, normal S1-S2, no JVD. Abdomen: Soft, nontender, nondistended, bowel sounds are present. No guarding. Extremities: Warm, well-perfused, symmetrical muscular development. Neuro: Moves 4 extremities to stimulation. Squeezes left and right hand. Patellar deep tendon reflexes 3+ left 2+ right. No ankle clonus. Toes down bilaterally. Pupils 3 mm react to 2 mm briskly. Cough reflex intact. Moderately sedated with propofol. Transfer Summary Patient will be flown to [facility] in [place] for treatment of a complex anterior communicating artery cerebral aneurysm. Hospital Course Following intubation and mechanical ventilation the patient underwent extensive radiographic studies which revealed an anterior communicating artery aneurysm of approximately 3 mm the morphology of which was complex. The interventional radiology service at [facility] felt that the aneurysm was not amenable to coiling and the patient was transported to [facility] for further evaluation and treatment. Pt Condition on Discharge: Stable Discharge Disposition: Disch to Another Hospital Bebeto Goodwin MD Feb 01, 2018 07:06
--- NOTE | 2018-02-02 00:52 | EKG ---
Date Performed: 01/31/2018 Time Performed: 10:35:47 PTAGE: 89 years EKG: Sinus rhythm WITH FIRST DEGREE AV BLOCK WITH OCCASIONAL SUPRAVENTRICULAR PREMATURE COMPLEXES LEFT VENTRICULAR HYP ERTROPHY AND ST-T CHANGE ABNORMAL ECG INTERPRETATION BASED ON A DEFAULT AGE OF 42 YEARS NO PREVIOUS TRACING DOCTOR: Lane Pena Interpretating Date/Time 02/02/2018 00:52:17
== END 2018-01-31 23:39 | disposition short-term general hospital (02) | DRG 23 ==
LOC: NEPI 10:30 → NEDA 11:30 → EDBD 11:30 → N03A 12:51
PROVIDERS: ADMIT Surgery Surgical Critical Care; ATTEND Surgery Surgical Critical Care
PROC: 009630Z Drainage of Cerebral Ventricle with Drainage Device, Percutaneous Approach (ICD-10-PCS; principal; 2018-01-31)
PROC: 5A1935Z Respiratory Ventilation, Less than 24 Consecutive Hours (ICD-10-PCS; 2018-01-31)
PROC: 03HY32Z Insertion of Monitoring Device into Upper Artery, Percutaneous Approach (ICD-10-PCS; 2018-01-31)
PROC: 0BH17EZ Insertion of Endotracheal Airway into Trachea, Via Natural or Artificial Opening (ICD-10-PCS; 2018-01-31)
PROC: 4A133B1 Monitoring of Arterial Pressure, Peripheral, Percutaneous Approach (ICD-10-PCS; 2018-01-31)
PROC: 4A133J1 Monitoring of Arterial Pulse, Peripheral, Percutaneous Approach (ICD-10-PCS; 2018-01-31)
DX: I60.9 Nontraumatic subarachnoid hemorrhage, unspecified (principal); G93.40 Encephalopathy, unspecified; J96.00 Acute respiratory failure, unspecified whether with hypoxia or hypercapnia; G91.8 Other hydrocephalus; I16.1 Hypertensive emergency; I61.8 Other nontraumatic intracerebral hemorrhage; E11.9 Type 2 diabetes mellitus without complications; I10 Essential (primary) hypertension; R00.0 Tachycardia, unspecified; E78.5 Hyperlipidemia, unspecified; Z86.79 Personal history of other diseases of the circulatory system; N40.0 Benign prostatic hyperplasia without lower urinary tract symptoms; I25.10 Atherosclerotic heart disease of native coronary artery without angina pectoris; Z95.5 Presence of coronary angioplasty implant and graft
CPT/HCPCS: 36600; 70450; 70496; 70498; 71045; 72125; 72170; 80048; 80307; 81001; 82550; 82805; 84155; 84484; 85025; 85384; 85610; 85730; 86850; 86900; 86901; 87086; 87641; 93005; 94002; 94770; C9113; J1953; J2250; J7030; J7050; Q9967